=== PATIENT | female | born 1995 | race Caucasian/White ===

== ENCOUNTER 2018-12-04 15:13 | Emergency (ER) | payer MEDICAID ==
[2018-12-04] MEDS: ACETAMINOPHEN 325 MG TAB PO (17:04)
[2018-12-04 17:09] LABS: URINE BLOOD (Dip) POC Negative (NEGATIVE); URINE GLUCOSE (Dip) POC Negative (NEGATIVE); URINE KETONES (Dip) POC Negative (NEGATIVE); URINE LEUKOCYTE EST (Dip) POC Trace (NEGATIVE); URINE NITRITE (Dip) POC Positive (NEGATIVE); URINE TOTAL PROTEIN POC Trace (NEGATIVE)
== END 2018-12-04 18:34 | disposition home or self-care (01) ==
LOC: FTE 15:13
DX: O20.9 Hemorrhage in early pregnancy, unspecified (principal); O23.42 Unspecified infection of urinary tract in pregnancy, second trimester; O99.612 Diseases of the digestive system complicating pregnancy, second trimester; K02.9 Dental caries, unspecified; Z3A.16 16 weeks gestation of pregnancy
CPT/HCPCS: 76805; 81003; 99284-25